=== PATIENT | male | born 1950 | race Caucasian/White ===

== ENCOUNTER 2023-02-05 09:34 | Outpatient (CLI) | payer MEDICARE, OTHER | END 2023-02-05 09:35 | disposition home or self-care (01) | LOC: SCSMRI 09:34 | PROVIDERS: ATTEND Anesthesiology Pain Medicine | DX: M16.0 Bilateral primary osteoarthritis of hip (principal); M25.852 Other specified joint disorders, left hip; M25.851 Other specified joint disorders, right hip; S73.102A Unspecified sprain of left hip, initial encounter; M67.854 Other specified disorders of tendon, left hip ==